=== PATIENT | female | born 1975 | race Caucasian/White ===

== ENCOUNTER 2022-01-18 05:31 | Inpatient (IN) | payer BC ==
[2022-01-18] MEDS ORDERED: Morphine 4 MG/ML VIAL ONE (05:58)
[2022-01-18] MEDS ORDERED: Furosemide 40 MG/4 ML VIAL ONE (06:22)
[2022-01-18] MEDS ORDERED: Labetalol HCl 100 MG/20 ML VIAL ONE (07:14)
[2022-01-18 07:16] LABS: SARS-CoV-2 NAA Rapid Test Not Detected (NotDetected)
[2022-01-18] MEDS ORDERED: hydrALAZINE 20 MG/ML VIAL SLOW IVP PRN (08:20)
[2022-01-18] MEDS ORDERED: Ondansetron ODT 4 MG TAB PO PRN (08:22)
[2022-01-18] MEDS ORDERED: Calcium Carbonate 500 MG ChewTAB PO PRN (08:22)
[2022-01-18] MEDS ORDERED: Senokot S 8.6-50 MG TAB PO PRN (08:22)
[2022-01-18] MEDS ORDERED: Ondansetron PF 4 MG/2 ML Vial IVP PRN (08:22)
[2022-01-18] MEDS ORDERED: NIFEdipine XL 30 MG TAB PO SCH (08:30)
[2022-01-18] MEDS ORDERED: Aspirin 81 mg Enteric Coated Tablet PO SCH (09:00)
[2022-01-18] MEDS ORDERED: Electrolyte Replacement Protocol 1 EACH FS SCH (09:30)
[2022-01-18] MEDS ORDERED: Furosemide 20 MG/2 ML VIAL SLOW IVP SCH (09:30)
[2022-01-18] MEDS ORDERED: Potassium Chloride 20 MEQ TAB PO SCH ×2 (09:30→17:00)
[2022-01-18] MEDS ORDERED: Amlodipine 5 MG TAB PO SCH (09:30)
[2022-01-18] MEDS ORDERED: Electrolyte Replacement Protocol FS PRN (09:45)
[2022-01-18 10:01] LABS: Magnesium 2.1 mg/dL (1.6-2.6)
[2022-01-18] MEDS: Nitroglycerin 2% Ointment 1 INCH/1 GM Packet TOP SCH ×2 (10:12→17:08)
[2022-01-18] MEDS: Heparin 5,000 UNITS/ML VIAL SC SCH ×2 (10:12→21:18)
[2022-01-18] MEDS: Famotidine 20 MG TAB PO SCH ×2 (10:12→21:17)
[2022-01-18 10:16] VITALS: BMI 43.9
[2022-01-18 10:24] LABS: CKMB 4.6 ng/mL (0-6.6)
[2022-01-18] MEDS: Acetaminophen 325 MG TAB PO PRN ×2 (12:12→18:54)
[2022-01-18] MEDS ORDERED: hydrALAZINE 25 MG TAB PO SCH ×4 (12:15→21:00)
[2022-01-18] MEDS: hydrALAZINE 20 MG/ML VIAL SLOW IVP PRN ×2 (12:23→17:09)
[2022-01-18 12:53] LABS: Troponin I 0.053 ng/mL (< 0.028)
[2022-01-18] MEDS: Furosemide 20 MG/2 ML VIAL SLOW IVP SCH (14:18)
[2022-01-18] MEDS ORDERED: Enalaprilat Dihydrate 1.25 MG/ML VIAL SLOW IVP PRN (17:06)
[2022-01-18] MEDS: Nitroglycerin 0.4 MG TAB (25 Tab Bottle) SL PRN ×2 (17:48→17:58)
[2022-01-18 18:39] LABS: Pregnancy Test - Urine (BHCG) Negative (Negative); Pregu Control Background? CLEAR/WHITE (CLR/WHITE); Pregu Control Bar Appear? YES (CONTROL BAR); Specific Gravity 1.013 (1.002-1.036)
[2022-01-18 19:33] LABS: CKMB 4.8 ng/mL (0-6.6)
[2022-01-18] MEDS: Amlodipine 5 MG TAB PO SCH (21:17)
[2022-01-19] MEDS: Acetaminophen 325 MG TAB PO PRN ×3 (00:46→21:14)
[2022-01-19] MEDS: Nitroglycerin 2% Ointment 1 INCH/1 GM Packet TOP SCH ×2 (00:46→08:11)
[2022-01-19] MEDS ORDERED: Ketorolac Tromethamine 30 MG/ML VIAL IVP SCH (03:00)
[2022-01-19 04:00] LABS: #Eosinphils 0.1 thou/uL (0.0-0.7); #Lymphocytes 1.6 thou/uL (1.20-3.40); #Neutrophils 8.9 thou/uL (1.40-6.50); %Basophils 0.1 % (0.0-1.0); %Eosinophils 0.8 % (0.0-10.0); %Monocytes 8.5 % (0.0-10.0); %Neutrophils 76.6 % (42.0-75.0); Hemoglobin 11.9 g/dL (12.0-16.0); Mean Corpuscular Volume 80.6 fL (78.0-98.0); Mean Platelet Volume 10.2 fL (7.4-10.4); Platelet Count 210 thou/uL (130-400); RBC Distribution Width 18.9 % (11.5-14.5); Red Blood Cell (RBC) Count 4.75 mill/uL (4.20-5.40); White Blood Cell (WBC) Count 11.6 thou/uL (4.8-10.8)
[2022-01-19 04:20] LABS: ALT (SGPT) 12 U/L (8-55); AST (SGOT) 34 U/L (5-34); Albumin 3.5 g/dL (3.5-5.0); Alkaline Phosphatase 70 U/L (40-110); Anion Gap 12 mmol/L (10-20); BUN (Urea Nitrogen) 11 mg/dL (7.0-18.7); Bilirubin, Total 0.5 mg/dL (0.2-1.2); Calc. Creatinine Clearance 191 mL/min (70-130); Calcium 8.7 mg/dL (7.8-10.44); Carbon Dioxide 23 mmol/L (22-29); Chloride 104 mmol/L (98-107); Estimated GFR 109; Globulin 3.2 g/dL (2.4-3.5); Glucose 113 mg/dL (70-105); Potassium 3.7 mmol/L (3.5-5.1); Protein, Total 6.7 g/dL (6.0-8.3); Sodium 135 mmol/L (136-145)
[2022-01-19] MEDS: Furosemide 20 MG/2 ML VIAL SLOW IVP SCH ×2 (05:45→14:41)
[2022-01-19] MEDS ORDERED: Magnesium 2 GM/50 ML(in water) 2 GM in Premix Bag 1 BAG IVPB SCH (08:00)
[2022-01-19] MEDS: Amlodipine 5 MG TAB PO SCH ×2 (08:11→21:07)
[2022-01-19] MEDS: Famotidine 20 MG TAB PO SCH ×2 (08:12→21:08)
[2022-01-19] MEDS: Heparin 5,000 UNITS/ML VIAL SC SCH ×2 (08:12→21:08)
[2022-01-19] MEDS: Aspirin 81 mg Enteric Coated Tablet PO SCH (08:12)
[2022-01-19] MEDS ORDERED: NIFEdipine XL 30 MG TAB PO SCH (09:00)
[2022-01-19] MEDS ORDERED: Amlodipine 5 MG TAB PO SCH (09:00)
[2022-01-19] MEDS ORDERED: Lisinopril 10 MG TAB PO SCH (12:00)
[2022-01-19] MEDS: Atorvastatin Calcium 40 MG TAB PO SCH (21:06)
[2022-01-19] MEDS: Lisinopril 10 MG TAB PO SCH (21:06)
[2022-01-19] MEDS: hydrALAZINE 20 MG/ML VIAL SLOW IVP PRN (23:50)
[2022-01-20] MEDS: Acetaminophen 325 MG TAB PO PRN ×2 (01:31→08:13)
[2022-01-20 04:41] LABS: Hemoglobin 13.4 g/dL (12.0-16.0); Mean Corpuscular HGB CONC 31.5 g/dL (32.0-36.0); Mean Corpuscular Hemoglobin 25.6 pg (27.0-31.0); Mean Corpuscular Volume 81.2 fL (78.0-98.0); Mean Platelet Volume 9.3 fL (7.4-10.4); Platelet Count 248 thou/uL (130-400); RBC Distribution Width 18.8 % (11.5-14.5); Red Blood Cell (RBC) Count 5.22 mill/uL (4.20-5.40); White Blood Cell (WBC) Count 8.9 thou/uL (4.8-10.8)
[2022-01-20 05:00] LABS: Anion Gap 13 mmol/L (10-20); BUN (Urea Nitrogen) 11 mg/dL (7.0-18.7); Calc. Creatinine Clearance 183 mL/min (70-130); Calcium 9.1 mg/dL (7.8-10.44); Carbon Dioxide 24 mmol/L (22-29); Chloride 103 mmol/L (98-107); Estimated GFR 108; Glucose 110 mg/dL (70-105); Potassium 3.7 mmol/L (3.5-5.1); Sodium 136 mmol/L (136-145)
[2022-01-20] MEDS: Furosemide 20 MG TAB PO SCH (09:48)
[2022-01-20] MEDS: Aspirin 81 mg Enteric Coated Tablet PO SCH (09:48)
[2022-01-20] MEDS: Amlodipine 5 MG TAB PO SCH ×2 (09:48→20:41)
[2022-01-20] MEDS: Famotidine 20 MG TAB PO SCH ×2 (09:49→20:50)
[2022-01-20] MEDS: Lisinopril 10 MG TAB PO SCH ×2 (09:49→20:41)
[2022-01-20] MEDS: Heparin 5,000 UNITS/ML VIAL SC SCH ×2 (09:51→20:42)
[2022-01-20] MEDS ORDERED: Fioricet 325/50/40 mg Tablet PO SCH (14:03)
[2022-01-20] MEDS ORDERED: Methocarbamol 500 MG TAB PO SCH (14:15)
[2022-01-20] MEDS ORDERED: Ketorolac Tromethamine 30 MG/ML VIAL IVP SCH (14:15)
[2022-01-20] MEDS: Methocarbamol 500 MG TAB PO SCH ×2 (18:42→20:41)
[2022-01-20] MEDS: Atorvastatin Calcium 40 MG TAB PO SCH (20:42)
[2022-01-21 05:07] LABS: #Basophils 0.1 thou/uL (0.0-0.2); #Eosinphils 0.6 thou/uL (0.0-0.7); #Monocytes 0.8 thou/uL (0.11-0.59); #Neutrophils 5.2 thou/uL (1.40-6.50); %Basophils 0.7 % (0.0-1.0); %Eosinophils 6.9 % (0.0-10.0); %Lymphocytes 22.5 % (21.0-51.0); %Monocytes 9.7 % (0.0-10.0); %Neutrophils 60.3 % (42.0-75.0); Hemoglobin 13.2 g/dL (12.0-16.0); Mean Corpuscular HGB CONC 30.8 g/dL (32.0-36.0); Mean Corpuscular Volume 81.2 fL (78.0-98.0); Mean Platelet Volume 9.6 fL (7.4-10.4); Platelet Count 267 thou/uL (130-400); RBC Distribution Width 18.6 % (11.5-14.5); Red Blood Cell (RBC) Count 5.28 mill/uL (4.20-5.40); White Blood Cell (WBC) Count 8.7 thou/uL (4.8-10.8)
[2022-01-21 05:24] LABS: Anion Gap 15 mmol/L (10-20); BUN (Urea Nitrogen) 19 mg/dL (7.0-18.7); Calc. Creatinine Clearance 150 mL/min (70-130); Calcium 9.2 mg/dL (7.8-10.44); Carbon Dioxide 24 mmol/L (22-29); Chloride 103 mmol/L (98-107); Estimated GFR 86; Glucose 127 mg/dL (70-105); Sodium 138 mmol/L (136-145)
[2022-01-21] MEDS: Amlodipine 5 MG TAB PO SCH ×2 (09:35→20:12)
[2022-01-21] MEDS: Furosemide 20 MG TAB PO SCH (09:35)
[2022-01-21] MEDS: Famotidine 20 MG TAB PO SCH ×2 (09:36→20:11)
[2022-01-21] MEDS: Methocarbamol 500 MG TAB PO SCH (09:37)
[2022-01-21] MEDS: Acetaminophen 325 MG TAB PO PRN (09:37)
[2022-01-21] MEDS: Heparin 5,000 UNITS/ML VIAL SC SCH ×2 (09:38→20:12)
[2022-01-21] MEDS: Aspirin 81 mg Enteric Coated Tablet PO SCH (09:38)
[2022-01-21] MEDS: Lisinopril 10 MG TAB PO SCH (09:45)
[2022-01-21] MEDS: Atorvastatin Calcium 40 MG TAB PO SCH (20:11)
[2022-01-21] MEDS: Losartan 25 MG TAB PO SCH (20:12)
[2022-01-22] MEDS: Acetaminophen 325 MG TAB PO PRN ×3 (00:02→21:53)
[2022-01-22 04:52] LABS: #Basophils 0.1 thou/uL (0.0-0.2); #Eosinphils 0.6 thou/uL (0.0-0.7); #Lymphocytes 2.4 thou/uL (1.20-3.40); #Monocytes 0.9 thou/uL (0.11-0.59); %Basophils 0.6 % (0.0-1.0); %Eosinophils 6.7 % (0.0-10.0); %Lymphocytes 26.8 % (21.0-51.0); %Neutrophils 55.9 % (42.0-75.0); Mean Corpuscular HGB CONC 36.4 g/dL (32.0-36.0); Mean Corpuscular Hemoglobin 29.4 pg (27.0-31.0); Mean Corpuscular Volume 80.7 fL (78.0-98.0); Mean Platelet Volume 9.4 fL (7.4-10.4); Platelet Count 275 thou/uL (130-400); Red Blood Cell (RBC) Count 5.43 mill/uL (4.20-5.40); White Blood Cell (WBC) Count 8.9 thou/uL (4.8-10.8)
[2022-01-22 05:09] LABS: Anion Gap 13 mmol/L (10-20); BUN (Urea Nitrogen) 15 mg/dL (7.0-18.7); Calc. Creatinine Clearance 188 mL/min (70-130); Carbon Dioxide 23 mmol/L (22-29); Chloride 104 mmol/L (98-107); Estimated GFR 108; Glucose 107 mg/dL (70-105); Potassium 3.8 mmol/L (3.5-5.1); Sodium 136 mmol/L (136-145)
[2022-01-22] MEDS: Amlodipine 5 MG TAB PO SCH ×2 (12:29→20:50)
[2022-01-22] MEDS: Heparin 5,000 UNITS/ML VIAL SC SCH ×2 (12:30→20:34)
[2022-01-22] MEDS: Aspirin 81 mg Enteric Coated Tablet PO SCH (12:30)
[2022-01-22] MEDS: Losartan 25 MG TAB PO SCH ×2 (12:30→20:50)
[2022-01-22] MEDS: Famotidine 20 MG TAB PO SCH ×2 (12:30→20:50)
[2022-01-22] MEDS: Furosemide 20 MG TAB PO SCH (12:30)
[2022-01-22] MEDS ORDERED: Regadenoson 0.4 MG/5 ML SYRINGE ONE (14:27)
[2022-01-22] MEDS: hydrALAZINE 20 MG/ML VIAL SLOW IVP PRN (16:40)
[2022-01-22] MEDS: Atorvastatin Calcium 40 MG TAB PO SCH (20:50)
[2022-01-23 05:13] LABS: Anion Gap 12 mmol/L (10-20); BUN (Urea Nitrogen) 13 mg/dL (7.0-18.7); Calc. Creatinine Clearance 172 mL/min (70-130); Calcium 8.8 mg/dL (7.8-10.44); Carbon Dioxide 22 mmol/L (22-29); Chloride 106 mmol/L (98-107); Estimated GFR 108; Glucose 109 mg/dL (70-105); Potassium 4.4 mmol/L (3.5-5.1); Sodium 136 mmol/L (136-145)
[2022-01-23 06:22] LABS: #Eosinphils 0.6 thou/uL (0.0-0.7); #Lymphocytes 2.2 thou/uL (1.20-3.40); #Monocytes 0.6 thou/uL (0.11-0.59); #Neutrophils 3.3 thou/uL (1.40-6.50); %Basophils 0.3 % (0.0-1.0); %Monocytes 9.4 % (0.0-10.0); %Neutrophils 49.3 % (42.0-75.0); Hemoglobin 12.3 g/dL (12.0-16.0); Mean Corpuscular Hemoglobin 25.3 pg (27.0-31.0); Mean Corpuscular Volume 81.9 fl (78.0-98.0); Mean Platelet Volume 9.6 fL (7.4-10.4); Platelet Count 271 thou/uL (130-400); RBC Distribution Width 18.5 % (11.5-14.5); Red Blood Cell (RBC) Count 4.86 mill/uL (4.20-5.40); White Blood Cell (WBC) Count 6.8 thou/uL (4.8-10.8)
[2022-01-23] MEDS: Aspirin 81 mg Enteric Coated Tablet PO SCH (09:55)
[2022-01-23] MEDS: Furosemide 20 MG TAB PO SCH (09:55)
[2022-01-23] MEDS: Losartan 25 MG TAB PO SCH ×2 (09:55→21:05)
[2022-01-23] MEDS: Amlodipine 5 MG TAB PO SCH ×2 (09:55→21:07)
[2022-01-23] MEDS: Heparin 5,000 UNITS/ML VIAL SC SCH ×2 (09:55→21:07)
[2022-01-23] MEDS: Famotidine 20 MG TAB PO SCH ×2 (09:55→21:06)
[2022-01-23] MEDS ORDERED: Lorazepam 0.5 MG TAB PO SCH (13:30)
[2022-01-23] MEDS ORDERED: Communication Order-Pharmacy FS SCH (20:00)
[2022-01-23] MEDS: Atorvastatin Calcium 40 MG TAB PO SCH (21:07)
[2022-01-24 04:41] LABS: #Eosinphils 0.6 thou/uL (0.0-0.7); #Monocytes 0.7 thou/uL (0.11-0.59); #Neutrophils 4.1 thou/uL (1.40-6.50); %Basophils 0.4 % (0.0-1.0); %Eosinophils 7.7 % (0.0-10.0); %Lymphocytes 27.1 % (21.0-51.0); %Monocytes 8.9 % (0.0-10.0); %Neutrophils 55.9 % (42.0-75.0); Hemoglobin 12.6 g/dL (12.0-16.0); Mean Corpuscular Hemoglobin 25.3 pg (27.0-31.0); Mean Corpuscular Volume 81.5 fl (78.0-98.0); Mean Platelet Volume 9.4 fL (7.4-10.4); Platelet Count 291 thou/uL (130-400); RBC Distribution Width 18.2 % (11.5-14.5); Red Blood Cell (RBC) Count 4.98 mill/uL (4.20-5.40); White Blood Cell (WBC) Count 7.3 thou/uL (4.8-10.8)
[2022-01-24 05:14] LABS: Anion Gap 13 mmol/L (10-20); BUN (Urea Nitrogen) 15 mg/dL (7.0-18.7); Calc. Creatinine Clearance 169 mL/min (70-130); Calcium 9.2 mg/dL (7.8-10.44); Carbon Dioxide 23 mmol/L (22-29); Chloride 104 mmol/L (98-107); Estimated GFR 108; Glucose 112 mg/dL (70-105); Potassium 4.3 mmol/L (3.5-5.1); Sodium 136 mmol/L (136-145)
[2022-01-24] MEDS ORDERED: Lidocaine 1% PF 5 ML VIAL ONE (06:27)
[2022-01-24] MEDS ORDERED: Heparin 10,000 UNITS/ 10 ML VIAL ONE (06:27)
[2022-01-24] MEDS ORDERED: Verapamil 5 MG/2 ML VIAL ONE (06:27)
[2022-01-24] MEDS ORDERED: Nitroglycerin 100MG/250ML BOT 250 ML ONE (06:34)
[2022-01-24] MEDS: Acetaminophen 325 MG TAB PO PRN (09:06)
[2022-01-24] MEDS: Furosemide 20 MG TAB PO SCH (09:06)
[2022-01-24] MEDS: Aspirin 81 mg Enteric Coated Tablet PO SCH (09:06)
[2022-01-24] MEDS: Losartan 25 MG TAB PO SCH (09:06)
[2022-01-24] MEDS: Heparin 5,000 UNITS/ML VIAL SC SCH (09:06)
[2022-01-24] MEDS: Amlodipine 5 MG TAB PO SCH (09:06)
[2022-01-24] MEDS: Famotidine 20 MG TAB PO SCH (09:06)
[2022-01-24 11:51] VITALS: BP 152/70; TEMP 97.1
== END 2022-01-24 15:15 | disposition home or self-care (01) | DRG 280 ==
LOC: ERS 05:31 → SUATTDRO 05:31 → IMCU/EMU 07:48 → 2NO 01-19 18:02
PROVIDERS: ADMIT Internal Medicine; ATTEND Internal Medicine
DX: I16.1 Hypertensive emergency (principal); G92.8 Other toxic encephalopathy; I21.A1 Myocardial infarction type 2; Z20.822 Contact with and (suspected) exposure to COVID-19; G43.909 Migraine, unspecified, not intractable, without status migrainosus; F15.129 Other stimulant abuse with intoxication, unspecified; Z88.0 Allergy status to penicillin; Z88.5 Allergy status to narcotic agent; Z88.8 Allergy status to other drugs, medicaments and biological substances; Z91.040 Latex allergy status; I69.992 Facial weakness following unspecified cerebrovascular disease; Z91.14 Patient's other noncompliance with medication regimen
CPT/HCPCS: 36415; 70450; 78452; 80048; 80053; 81025; 82553; 83735; 85025; 85027; 93005; 93010; 93017; 93306; 94760; 96374; 96375; A9500; J0360; J1644; J1885; J1940; J2270; J2405; J2785; J3475; Q0162; U0002